=== PATIENT | male | born 1985 | race Caucasian/White ===

== ENCOUNTER 2016-11-13 00:45 | Emergency (ER) | payer SELFPAY ==
--- NOTE | 2016-11-13 00:55 | EDM.PDOC ---
ED HPI GENERAL MEDICAL PROBLEM - General Stated Complaint: AMBULANCE Time Seen by Provider: 11/13/16 00:54 Source of Information: Reports: Patient - History of Present Illness INITIAL COMMENTS - FREE TEXT/NARRATIVE: HISTORY AND PHYSICAL: History of present illness: [Patient found alongside Road, with apparent alcohol intoxication, he complains of head and neck pain, further history is known at this time Glascow coma scale 12 Review of systems: As per history of present illness and below otherwise all systems reviewed and negative. Past medical history: As per history of present illness and as reviewed below otherwise noncontributory. Surgical history: As per history of present illness and as reviewed below otherwise noncontributory. Social history: No reported history of drug or alcohol abuse. Family history: As per history of present illness and as reviewed below otherwise noncontributory. Physical exam: HEENT: Atraumatic, normocephalic, pupils reactive, negative for conjunctival pallor or scleral icterus, mucous membranes moist, throat clear, neck supple, nontender, trachea midline. Lungs: Clear to auscultation, breath sounds equal bilaterally, chest nontender. Heart: S1S2, regular, negative for clicks, rubs, or JVD. Abdomen: Soft, nondistended, nontender. Negative for masses or hepatosplenomegaly. Negative for costovertebral tenderness. Pelvis: Stable nontender. Genitourinary: Deferred. Rectal: Deferred. Extremities: Atraumatic, negative for cords or calf pain. Neurovascular unremarkable. Neuro: Awake, alert, oriented. Cranial nerves II through XII unremarkable. Cerebellum unremarkable. Motor and sensory unremarkable throughout. Exam nonfocal. Diagnostics: [] Lab as below-pending at time of transfer Rest one view Head CT without Cervical spine without Therapeutics: [] Liter normal saline bolus Dr. Silva ER excepting physician Impression: [] Clinical Alcohol intoxication Subdural hematoma along falx 4 mm Intraparenchymal hemorrhage x2 right frontal lobe no mass effect no midline shift Definitive disposition and diagnosis as appropriate pending reevaluation and review of above. ED ROS GENERAL - Review of Systems Review Of Systems: ROS reveals no pertinent complaints other than HPI. ED EXAM, GENERAL - Physical Exam Exam: See Below Course - Vital Signs Last Recorded V/S: Last Vital Signs Temp 36.4 C 11/13/16 00:45 Pulse 59 L 11/13/16 00:45 Resp 19 11/13/16 00:45 BP 126/73 11/13/16 00:45 Pulse Ox 96 11/13/16 00:45 - Orders/Labs/Meds Orders: Active Orders 24 hr Category Date Time Status Cervical Spine wo Cont [CT] Stat Exams 11/13/16 00:53 Taken Chest 1V Frontal [CR] Stat Exams 11/13/16 00:53 Taken Head wo Cont [CT] Stat Exams 11/13/16 00:53 Taken CBC WITH AUTO DIFF [HEME] Stat Lab 11/13/16 02:02 Received COMPREHENSIVE METABOLIC PN,CMP [CHEM] Stat Lab 11/13/16 02:02 Received DRUG SCREEN, URINE [URCHEM] Stat Lab 11/13/16 00:53 Uncollected ETHANOL BLOOD MEDICAL [CHEM] Stat Lab 11/13/16 02:02 Received INR,PT,PROTHROMBIN TIME [COAG] Stat Lab 11/13/16 02:02 Received TROPONIN I [CHEM] Stat Lab 11/13/16 02:02 Received UA W/MICROSCOPIC [URIN] Stat Lab 11/13/16 00:53 Uncollected Meds: Medications Discontinued Medications Generic Name Dose Route Start Last Admin Trade Name Freq PRN Reason Stop Dose Admin Ondansetron HCl 8 mg 11/13/16 01:33 11/13/16 01:42 Zofran IVPUSH 11/13/16 01:34 8 mg ONETIME ONE Administration Ondansetron HCl Confirm 11/13/16 01:34 Zofran Administered 11/13/16 01:35 Dose 8 mg .ROUTE .STK-MED ONE Departure - Departure Time of Disposition: 02:10 Disposition: DC/Tfer to Other 70 Condition: poor Clinical Impression: Subdural hematoma - My Orders Last 24 Hours: My Active Orders 11/13/16 00:53 Cervical Spine wo Cont [CT] Stat Chest 1V Frontal [CR] Stat Head wo Cont [CT] Stat DRUG SCREEN, URINE [URCHEM] Stat UA W/MICROSCOPIC [URIN] Stat 11/13/16 02:02 CBC WITH AUTO DIFF [HEME] Stat COMPREHENSIVE METABOLIC PN,CMP [CHEM] Stat ETHANOL BLOOD MEDICAL [CHEM] Stat INR,PT,PROTHROMBIN TIME [COAG] Stat TROPONIN I [CHEM] Stat - Assessment/Plan Last 24 Hours: My Active Orders 11/13/16 00:53 Cervical Spine wo Cont [CT] Stat Chest 1V Frontal [CR] Stat Head wo Cont [CT] Stat DRUG SCREEN, URINE [URCHEM] Stat UA W/MICROSCOPIC [URIN] Stat 11/13/16 02:02 CBC WITH AUTO DIFF [HEME] Stat COMPREHENSIVE METABOLIC PN,CMP [CHEM] Stat ETHANOL BLOOD MEDICAL [CHEM] Stat INR,PT,PROTHROMBIN TIME [COAG] Stat TROPONIN I [CHEM] Stat
[2016-11-13] MEDS ORDERED: Ondansetron 4 MG/2 ML SDV IVPUSH ONE (01:33)
[2016-11-13] MEDS ORDERED: Ondansetron 4 MG/2 ML SDV ONE (01:34)
[2016-11-13 02:33] LABS: CHLORIDE,CL 112 mmol/L (98-110); SODIUM,NA 144 mmol/L (136-146)
[2016-11-13] MEDS ORDERED: Haloperidol Lactate 5 MG/ML SDV ONE (02:55)
[2016-11-13] MEDS ORDERED: Haloperidol Lactate 5 MG/ML SDV IM ONE (02:55)
[2016-11-13 02:56] VITALS: BP 142/76
--- NOTE | 2016-11-13 16:33 | CT ---
EXAM DATE: 11/13/16 PATIENT'S AGE: 31 Patient: UZAIR CASTELLON Facility: [place], [place] Site . Site : 1985 Study: CT Head [id number]/[id number] 1:40:00 AM Ordering Physician: Tevin Cervantes Final Report: INDICATION: etoh fell ? loc CT HEAD WITHOUT CONTRAST TECHNIQUE: Multiple axial CT images were performed through the head without intravenous contrast administration. COMPARISON: No previous studies are currently available for comparison. FINDINGS: There is increased density in the interhemispheric fissure along the right side of the falx consistent with an acute subdural hematoma, approximately 4 millimeters in maximum thickness. Additionally, there are two small acute intraparenchymal hematomas in the right frontal lobe, each measuring 6-7 millimeters in size, as on images 45 and 49 of series 201. There is no mass effect or midline shift. Ventricles are normal in size and configuration. Brain parenchyma shows unremarkable ramirez-white differentiation. Osseous structures are within normal limits and no fractures are seen. Included portions of the paranasal sinuses show moderate mucosal thickening involving the maxillary, ethmoid, and frontal sinuses bilaterally. The mastoid air cells are normally aerated. IMPRESSION: 1. Small acute subdural hematoma in the interhemispheric fissure to the right of the falx, measuring 4 millimeters in maximum thickness. 2. Two small acute intraparenchymal hematomas in the right frontal lobe, each measuring 6-7 millimeters in size. 3. No mass effect or midline shift. No fracture identified. 4. Paranasal sinus disease as noted. Results were called to Dr. Abarca at 1:55 a.m. on 11/13/2016. DAO TSANG MD [employer] Dictated by Rancho Tsang MD @ 11/13/2016 1:59:34 AM Dictated by: Rancho Tsang MD @ 11/13/2016 02:00:43 (Electronic Signature) Report Signed by Proxy and Original Signed Document filed in the Medical Record. [facility]
--- NOTE | 2016-11-13 16:35 | CT ---
EXAM DATE: 11/13/16 PATIENT'S AGE: 31 Patient: UZAIR CASTELLON Facility: [place], [place] Site . Site : 1985 Study: CT Spine Cervical [id number]/3/2017 1:40:40 AM Ordering Physician: Tevin Cervantes Final Report: INDICATION: ETOH ? FELL ? LOC CT CERVICAL SPINE WITHOUT CONTRAST TECHNIQUE: Multidetector axial CT imaging was performed through the cervical spine, without contrast. Sagittal and coronal reconstructions were generated. FINDINGS: No acute fractures are identified. Osseous alignment is unremarkable and no subluxation is seen. Prevertebral soft tissues appear normal. Included portions of the airway and lung apices are within normal limits. IMPRESSION: No fracture, subluxation, or other acute finding identified. DAO TSANG MD [employer] Dictated by: Rancho Tsang MD @ 11/13/2016 01:54:37 (Electronic Signature) Report Signed by Proxy and Original Signed Document filed in the Medical Record. [facility]
--- NOTE | 2016-11-13 16:35 | CR ---
EXAM DATE: 11/13/16 PATIENT'S AGE: 31 Patient: UZAIR CASTELLON Facility: [place], [place] Site . Site : 1985 Study: XRay Chest [id number]/3/2017 1:53:32 AM Ordering Physician: Tevin Cervantes Final Report: INDICATION: Fall TECHNIQUE: Chest 1 view. COMPARISON: None FINDINGS: Cardiovascular and mediastinum: Heart size and vasculature are normal in caliber and appearance. Mediastinum is within normal limits. Lungs and pleural space: Lungs are clear. No sign of infiltrate or mass. No sign of pleural effusion. No pneumothorax. Bones and soft tissues: Scoliosis thoracolumbar spine. IMPRESSION: No evidence of acute trauma. Dictated by Jeanmarie Parra MD @ 11/13/2016 2:05:40 AM Dictated by: Jeanmarie Parra MD @ 11/13/2016 02:06:09 (Electronic Signature) Report Signed by Proxy and Original Signed Document filed in the Medical Record. [facility]
== END 2016-11-13 02:50 | disposition other institution (70) ==
LOC: MW.ED 00:45
DX: S06.5X0A Traumatic subdural hemorrhage without loss of consciousness, initial encounter (principal); X58.XXXA Exposure to other specified factors, initial encounter
CPT/HCPCS: 36415; 70450; 71010; 72125; 80053; 84484; 85025; 85610; 96374; 99285; G0480; J2405

== ENCOUNTER 2021-09-02 12:12 | Emergency (ER) | payer SELFPAY ==
--- NOTE | 2021-09-02 12:15 | EDM.PDOC ---
ED HPI GENERAL MEDICAL PROBLEM - General Chief Complaint: Lower Extremity Injury/Pain Stated Complaint: RIGHT KNEE Time Seen by Provider: 09/02/21 12:15 Source of Information: Reports: Patient History Limitations: Reports: No Limitations - History of Present Illness INITIAL COMMENTS - FREE TEXT/NARRATIVE: HISTORY AND PHYSICAL: History of present illness: Patient is a 36-year-old male who presents to the emergency room with complaints of right lateral knee pain. Patient states he has chronic right knee pain due to a partial tear he received when he was younger playing softball. Two days ago he was getting out of his truck and his foot slid from underneath him resulting in him twisting wrong, he now has right lateral knee pain and is concerned he has another partial or full tear of his "meniscus". He denies any other bodily injury or trauma He did not hit his head or have any LOC. Patient denies any fever, chills, headache, change in vision, syncope or near syncope. Denies any chest pain, back pain, shortness of breath or cough. Denies any GI or symptoms. No recent travel or sick contacts. Review of systems: As per history of present illness and below otherwise all systems reviewed and negative. Past medical history: As per history of present illness and as reviewed below otherwise noncontributory. Surgical history: As per history of present illness and as reviewed below otherwise noncontributory. Social history: See social history for further information Family history: As per history of present illness and as reviewed below otherwise nonco ntributory. Physical exam: General: Well developed and well nourished 36 year old male. Alert and orientated x 3. Nontoxic in appearance and in no acute distress. Vital signs are stable and have been reviewed by me. Nursing notes were reviewed. HEENT: Atraumatic, normocephalic, pupils equal and reactive bilaterally, negative for conjunctival pallor or scleral icterus, mucous membranes moist, tra demetri midline. No drooling or trismus noted. No meningeal signs. No hot potato voice noted. Lungs: Clear to auscultation bilaterally. No wheezes, rales, or rhonchi. Chest nontender. Normal work of breathing, no accessory muscles used. Heart: S1S2, regular rate and rhythm without overt murmur, gallops, or rubs. No JVD. No peripheral edema Abdomen: Soft, nondistended, nontender. Normoactive bowel sounds. Negative for masses or costovertebral tenderness. Skin: Intact, warm, dry. No lesions or rashes noted. Hematologic: No petechiae or purpra. Mucosa appropriate color and normal nail bed color and refill. Extremities: Pain with palpation of anterior and lateral right knee with moderate swelling. He moves all extremities per self without difficulty or deficits, negative for cords or calf pain, negative drawer test, no knee instability noted. Strong pedal and pretibial pulse. Neurovascular unremarkable. Neuro: Awake, alert, oriented. Cranial nerves II through XII unremarkable. Cerebellum unremarkable. Motor and sensory unremarkable throughout. Exam nonfocal. Psychiatric: Mood and affect are appropriate. Normal thought process. Answering questions appropriately. Please note that the patient was seen and evaluated during the 2019 SARS-CoV-2 novel coronavirus pandemic period. Community viral transmission is ongoing at time of this encounter and the emergency department is operating under pandemic response procedures. Medical Decision Making: Patient is a 36-year-old male who presents to the emergency room with concerns he tore his right meniscus. He states he has had acute on chronic pain intermittently over several years. 2 days ago he was trying to get out of his vehicle when he twisted wrong and has significant pain to the medial aspect of his knee. He does have a compression garment over the knee which he states he uses at times of pain. We did discuss imaging, he is unable to get an MRI today through the emergency department but may be able to do it as an outpatient if he follows up with the orthopedic clinic. X-ray shows no fracture, dislocation or destructive process. Small joint effusion. No arthritic change. We did get the patient an appointment with orthopedics as I do feel he would benefit from an MRI, appointment is on , 09/04/2021 at 9:45 AM. I have talked with the patient about today's findings, in addition to providing specific details for plan of care. Reassessment at the time of disposition demonstrates that the patient is in no acute distress. The patient is stable for discharge, counseling was provided and we discussed in great detail signs and symptoms that would prompt them to return to the Emergency Department. Medication, follow up and supportive care measures were reviewed and discussed. Voices understanding and is agreeable to plan of care. Denies any further questions or concerns at this time. Diagnostics: X-ray Therapeutics: Knee immobilizer, crutches Prescription: Outpatient MRI Impression: Knee injury, right Plan: 1. You were evaluated today on an emergent basis. Your x-ray shows no fracture or dislocation. Due to the mechanism of injury and your history, I have ordered an outpatient MRI. Please call to set up this appointment. Results will be forwarded to the orthopedic clinic, 09/04/21 @ 0940am (Please arrive 30 minutes early to your appointment at the [facility]). Rest, ice, elevate the extremity as able. Use the knee brace and crutches for comfort. 2. You can alternate Tylenol and ibuprofen as needed for pain and fever management. [place] for moderate to severe pain. This medication may cause drowsiness so do not take it while driving or needing to be functioning outside of the house. 3. We encourage you to follow up with orthopedics re-evaluation and further care/management. 4. If your symptoms should worsen, new symptoms develop or any of the signs and symptoms we discussed should arise please return to the emergency room or call 911 (if needed). Definitive disposition and diagnosis as appropriate pending reevaluation and review of above. - Related Data Allergies Allergy/AdvReac Type Severity Reaction Status Date / Time No Known Allergies Allergy Verified 09/02/21 12:23 Home Meds: Home Meds Hydrocodone/Acetaminophen [HYDROcodone-Acetaminophen 5-325 MG] 1 - 2 tab PO Q4HR PRN #20 tablet 09/02/21 [Rx] Review of Systems - Review of Systems Review Of Systems: Comprehensive ROS is negative, except as noted in HPI. ED EXAM, GENERAL - Physical Exam Exam: See Below (See dictation) Course - Vital Signs Last Recorded V/S: Last Vital Signs Temp 97.0 F 09/02/21 12:25 Pulse 85 09/02/21 12:25 Resp 18 09/02/21 12:25 BP 139/76 09/02/21 12:25 Pulse Ox 97 09/02/21 12:25 - Orders/Labs/Meds Orders: Active Orders 24 hr Category Date Time Status DME for Discharge [COMM] Stat Oth 09/02/21 13:15 Ordered Departure - Departure Time of Disposition: 13:21 Disposition: Home, Self-Care 01 Clinical Impression: Injury, knee Qualifiers: Encounter type: initial encounter Laterality: right Qualified Code(s): S89.91XA - Unspecified injury of right lower leg, initial encounter - Discharge Information Prescriptions: Hydrocodone/Acetaminophen [HYDROcodone-Acetaminophen 5-325 MG] 1 - 2 tab PO Q4HR PRN #20 tablet PRN Reason: Pain (Moderate 4-6) Instructions: Knee Sprain, Adult, [id number] Forms: ED Department Discharge Additional Instructions: The following information is given to patients seen in the emergency department who are being discharged to home. This information is to outline your options for follow-up care. We provide all patients seen in our emergency department with a follow-up referral. The need for follow-up, as well as the timing and circumstances, are variable depending upon the specifics of your emergency department visit. If you don't have a primary care physician on staff, we will provide you with a referral. We always advise you to contact your personal physician following an emergency department visit to inform them of the circumstance of the visit and for follow-up with them and/or the need for any referrals to a consulting specialist. The emergency department will also refer you to a specialist when appropriate. This referral assures that you have the opportunity for follow-up care with a specialist. All of these measure are taken in an effort to provide you with optimal care, which includes your follow-up. Under all circumstances we always encourage you to contact your private physician who remains a resource for coordinating your care. When calling for follow-up care, please make the office aware that this follow-up is from your recent emergency room visit. If for any reason you are refused follow-up, please contact the [facility] Emergency Department at and asked to speak to the emergency department charge nurse. [facility] [address] [place] [id number] [address] Thank you for choosing the [facility] emergency department in [place] for your medical needs today. It was a pleasure caring for you. Today you were seen in the emergency department for knee injury. Your prescription was electronically sent to: [place] [facility] 1. You were evaluated today on an emergent basis. Your x-ray shows no fracture or dislocation. Due to the mechanism of injury and your history, I have ordered an outpatient MRI. Please call to set up this appointment. Results will be forwarded to the orthopedic clinic, 09/04/21 @ 0940am (Please arrive 30 minutes early to your appointment at the [facility]). Rest, ice, elevate the extremity as able. Use the knee brace and crutches for comfort. 2. You can alternate Tylenol and ibuprofen as needed for pain and fever management. [place] for moderate to severe pain. This medication may cause drowsiness so do not take it while driving or needing to be functioning outside of the house. 3. We encourage you to follow up with orthopedics re-evaluation and further care/management. 4. If your symptoms should worsen, new symptoms develop or any of the signs and symptoms we discussed should arise please return to the emergency room or call 911 (if needed). Sepsis Event Note (ED) - Focused Exam Vital Signs: Vital Signs Temp Pulse Resp BP Pulse Ox 09/02/21 12:25 97.0 F 85 18 139/76 97 - My Orders Last 24 Hours: My Active Orders 09/02/21 13:15 DME for Discharge [COMM] Stat - Assessment/Plan Last 24 Hours: My Active Orders 09/02/21 13:15 DME for Discharge [COMM] Stat
--- NOTE | 2021-09-02 13:09 | CR ---
Indication: Pain related to trauma Technique: Three images of the right knee were acquired. Comparison: None Findings: Normal bone mineral density. No fracture, dislocation or destructive process. No arthritic change. Small joint effusion Impression: No fracture, dislocation or destructive process. Small joint effusion. No arthritic change. Dictated by Avni Navarro MD @ 09/02/2021 1:07:05 PM (Electronically Signed)
== END 2021-09-02 14:37 | disposition home or self-care (01) ==
LOC: MW.ED 12:12
DX: S89.91XA Unspecified injury of right lower leg, initial encounter (principal); X50.1XXA Overexertion from prolonged static or awkward postures, initial encounter
CPT/HCPCS: 73562-26-RT; 73562-RT; 99283